=== PATIENT | female | born 1980 | race Caucasian/White ===

== ENCOUNTER 2023-04-04 13:34 | Inpatient (IN) ==
[2023-04-04] MEDS: Morphine 4 MG/ML VIAL (1 ml) IV ONE ×2 (15:45→17:55)
[2023-04-04] MEDS: Lactated Ringers 1000 ml BAG 1,000 ML IV ONE (15:45)
[2023-04-04 15:59] LABS: ABS Monocytes 0.9 10^3/uL (0.0-0.9); ABS Neutrophils 5.8 10^3/uL (1.5-7.6); ABS Nucleated RBC 0.01 10^3/ul; Eosinophil % 0.4 %; Hematocrit 37.1 % (35-45); Hemoglobin 12.6 g/dL (11.5-14.3); Lymphocyte % 36.9 %; Mean Corpuscular Hemoglobin 29.2 pg (27-33); Mean Platelet Volume 7.7 fL (7.5-11.2); Nucleated Red Blood Cells % 0.1 %/100WBC (0.0-0.8); Platelet Count 330 10^3/uL (150-450); Red Blood Count 4.32 10^6/uL (3.63-4.92); Red Cell Distribution Width 13.6 % (12-17); White Blood Count 10.8 10^3/uL (3.8-11.8)
[2023-04-04] MEDS: Dexamethasone IV 4 MG/ML VIAL 1 ml VIAL IV SLOW PU ONE (16:24)
[2023-04-04 16:40] LABS: Albumin 4.1 g/dL (3.2-5.2); Albumin/Globulin Ratio 1.5 (1-3); Calcium 9.2 mg/dL (8.6-10.3); Creatinine, Serum 0.64 mg/dL (0.51-0.95); Globulin 2.8 g/dL (2-4); Potassium 3.7 mmol/L (3.5-5.0); Total Bilirubin 0.5 mg/dL (0.2-1.0); Total Protein 6.9 g/dL (6.4-8.9); eGFR CKD-EPI 113.1 (>60)
[2023-04-04] MEDS: Famotidine IV 10 MG/ML 2 ml VIAL (20 mg) IV SLOW PU ONE (17:55)
[2023-04-04] MEDS: HYDROmorphone 0.5 MG/0.5 ML SYRINGE IV ONE (23:00)
[2023-04-05] MEDS: Lactated Ringers 1000 ml BAG 1,000 ML IV SCH ×2 (01:27→10:16)
[2023-04-05] MEDS: Acetaminophen IV 1 GM/100ML 1,000 MG/100 ML BAG IV SCH (01:27)
[2023-04-05 05:21] LABS: ABS Lymphocytes 1.3 10^3/uL (1.0-4.8); ABS Monocytes 0.3 10^3/uL (0.0-0.9); ABS Neutrophils 6.5 10^3/uL (1.5-7.6); Hematocrit 34.7 % (35-45); Hemoglobin 11.8 g/dL (11.5-14.3); Lymphocyte % 15.7 %; Mean Corpuscular Hemoglobin 29.1 pg (27-33); Mean Corpuscular Hgb Conc 34.1 g/dL (31-36); Mean Corpuscular Volume 85.3 fL (80-97); Mean Platelet Volume 7.5 fL (7.5-11.2); Platelet Count 321 10^3/uL (150-450); Red Blood Count 4.07 10^6/uL (3.63-4.92)
[2023-04-05 06:13] LABS: Calcium 9.2 mg/dL (8.6-10.3); Creatinine, Serum 0.55 mg/dL (0.51-0.95); eGFR CKD-EPI 117.3 (>60)
[2023-04-05] MEDS: Morphine 4 MG/ML VIAL (1 ml) IV PRN (10:11)
[2023-04-05] MEDS: Ondansetron 4 mg VIAL 2 MG/ML 2 ml VIAL IV ONE (10:11)
[2023-04-05] MEDS: Pantoprazole VIAL 40 MG VIAL IV SCH (12:26)
[2023-04-05] MEDS: Albuterol HFA INHALER 8 gm MDI INH PRN (12:26)
[2023-04-05] MEDS: Dexamethasone IV 4 MG/ML VIAL 1 ml VIAL IV SLOW PU SCH (14:37)
[2023-04-05] MEDS: Enoxaparin 40 MG/0.4 ML SYR SUBCUT SCH (17:26)
[2023-04-05] MEDS: Iodixanol (CONTRAST) 320 MG/ML 100 ML SDV IV ONE (19:50)
[2023-04-06] MEDS: Ondansetron 4 mg VIAL 2 MG/ML 2 ml VIAL IV PRN (03:08)
[2023-04-06] MEDS: Lactated Ringers 1000 ml BAG 1,000 ML IV SCH (14:54)
[2023-04-06] MEDS: Morphine 4 MG/ML VIAL (1 ml) IV PRN (20:27)
[2023-04-07 06:10] LABS: Hematocrit 31.6 % (35-45); Mean Corpuscular Hemoglobin 29.7 pg (27-33); Mean Corpuscular Hgb Conc 34.7 g/dL (31-36); Mean Corpuscular Volume 85.7 fL (80-97); Mean Platelet Volume 7.8 fL (7.5-11.2); Platelet Count 305 10^3/uL (150-450); Red Blood Count 3.69 10^6/uL (3.63-4.92); Red Cell Distribution Width 13.4 % (12-17)
[2023-04-07 06:25] LABS: Calcium 8.7 mg/dL (8.6-10.3); Creatinine, Serum 0.55 mg/dL (0.51-0.95); Potassium 3.8 mmol/L (3.5-5.0); eGFR CKD-EPI 117.3 (>60)
[2023-04-07] MEDS: Dexamethasone IV 4 MG/ML VIAL 1 ml VIAL IV SLOW PU ONE (08:18)
[2023-04-07] MEDS ORDERED: Dexamethasone IV 4 MG/ML VIAL 1 ml VIAL IV SLOW PU SCH (09:00)
[2023-04-07] MEDS: NS 0.9% 1000 ml BAG 1,000 ML IV ONE (12:17)
[2023-04-08] MEDS: Metoclopramide 5 MG/ML VIAL (10 mg) IV ONE (02:52)
[2023-04-08] MEDS: Dextrose 50% Syringe 50 ml 25 GM/50 ML SYRINGE ONE ×2 (08:05→18:47)
[2023-04-08] MEDS: KCL 20 MEQ/100 ML IVPREMIX 20 MEQ/100 ML BAG IV SCH (09:46)
[2023-04-08] MEDS: Hyaluronidase HUMAN 15 UNIT in Sodium Chloride 0.9% 0.9 ML INTRADERM ONE (12:04)
[2023-04-08] MEDS ORDERED: Morphine 2 MG/ML SYRINGE IV PRN (13:02)
[2023-04-08] MEDS: Lactated Ringers 1000 ml BAG 1,000 ML IV SCH (13:51)
[2023-04-08] MEDS: D5LR 1000 ml BAG 1,000 ML IV SCH (20:00)
[2023-04-09] MEDS: Metoclopramide 5 MG/ML VIAL (10 mg) IV ONE (02:33)
[2023-04-09 14:06] VITALS: BP 107/77
== END 2023-04-09 14:50 | disposition home or self-care (01) | DRG 813 ==
LOC: EDHOLD 13:34 → ED 13:34 → SUATTDRO 21:42 → SSU 23:20 → SUATTDRO 04-06 11:48
PROVIDERS: ADMIT Student in an Organized Health Care Education/Training Program; ATTEND Internal Medicine

== ENCOUNTER 2023-04-20 10:22 | Observation (INO) ==
[2023-04-20 12:11] LABS: ABS Eosinophils 0.2 10^3/uL (0.0-0.5); ABS Lymphocytes 2.6 10^3/uL (1.0-4.8); ABS Monocytes 0.5 10^3/uL (0.0-0.9); ABS Neutrophils 3.9 10^3/uL (1.5-7.6); ABS Nucleated RBC 0.01 10^3/ul; Eosinophil % 2.5 %; Hematocrit 37.5 % (35-45); Hemoglobin 12.9 g/dL (11.5-14.3); Lymphocyte % 35.6 %; Mean Corpuscular Hemoglobin 29.3 pg (27-33); Mean Corpuscular Hgb Conc 34.4 g/dL (31-36); Mean Corpuscular Volume 85.1 fL (80-97); Mean Platelet Volume 8.1 fL (7.5-11.2); Nucleated Red Blood Cells % 0.1 %/100WBC (0.0-0.8); Platelet Count 293 10^3/uL (150-450); Red Cell Distribution Width 13.7 % (12-17); White Blood Count 7.2 10^3/uL (3.8-11.8)
[2023-04-20 12:49] LABS: Calcium 9.5 mg/dL (8.6-10.3); Creatinine, Serum 0.6 mg/dL (0.51-0.95); Potassium 3.6 mmol/L (3.5-5.0); eGFR CKD-EPI 114.9 (>60)
[2023-04-20] MEDS: cefTRIAXone 1 gm/50 mL D5W 1 GM/50 ML BAG IV ONE (14:24)
[2023-04-20] MEDS: Ondansetron 4 mg VIAL 2 MG/ML 2 ml VIAL IV ONE (14:25)
[2023-04-20] MEDS: Vancomycin 1,500 MG in NS 0.9% 250 ml 250 ML IVPB ONE (15:21)
[2023-04-20] MEDS ORDERED: oxyCODONE 5 mg/5 ml ORAL.SOLN UDC PO PRN ×2 (15:38)
[2023-04-20] MEDS ORDERED: Dextrose 50% Syringe 50 ml 25 GM/50 ML SYRINGE IV PUSH PRN (16:24)
[2023-04-20] MEDS ORDERED: Ibuprofen ADULT LIQ 600 MG/30 ML UDC PO PRN (16:25)
[2023-04-20] MEDS ORDERED: Albuterol HFA INHALER 8 gm MDI INH PRN (17:00)
[2023-04-20] MEDS: HYDROcodone/ACET. 7.5/325 LIQ 15 ML UDC PO SCH (17:35)
[2023-04-21 07:34] LABS: ABS Eosinophils 0.2 10^3/uL (0.0-0.5); ABS Lymphocytes 2.6 10^3/uL (1.0-4.8); ABS Monocytes 0.6 10^3/uL (0.0-0.9); Eosinophil % 3.3 %; Hematocrit 34.9 % (35-45); Lymphocyte % 40.1 %; Mean Corpuscular Hemoglobin 29.4 pg (27-33); Mean Corpuscular Hgb Conc 34.5 g/dL (31-36); Mean Corpuscular Volume 85.2 fL (80-97); Mean Platelet Volume 8.1 fL (7.5-11.2); Platelet Count 257 10^3/uL (150-450); Red Blood Count 4.09 10^6/uL (3.63-4.92); Red Cell Distribution Width 13.6 % (12-17); White Blood Count 6.5 10^3/uL (3.8-11.8)
[2023-04-21 07:51] LABS: Calcium 8.7 mg/dL (8.6-10.3); Creatinine, Serum 0.67 mg/dL (0.51-0.95); Potassium 3.8 mmol/L (3.5-5.0); eGFR CKD-EPI 111.8 (>60)
[2023-04-21] MEDS: Famotidine SUSP ORALSYR 8 MG/ML PO SCH (09:53)
[2023-04-21] MEDS ORDERED: Ondansetron 4 mg VIAL 2 MG/ML 2 ml VIAL IV PRN (10:25)
[2023-04-21] MEDS: Pantoprazole VIAL 40 MG VIAL IV SCH (12:30)
[2023-04-21] MEDS ORDERED: cefTRIAXone 1 gm/50 mL D5W 1 GM/50 ML BAG IV SCH (14:00)
[2023-04-21 15:51] VITALS: BP 136/83
== END 2023-04-21 17:05 | disposition home or self-care (01) ==
LOC: EDHOLD 10:22 → ED 10:22 → MED 17:22
PROVIDERS: ADMIT Internal Medicine; ATTEND Internal Medicine